=== PATIENT | female | born 1955 | race Caucasian/White ===

== ENCOUNTER 2019-08-08 13:36 | Outpatient (CLI) | payer BC ==
--- NOTE | 2019-08-08 20:06 | MRI ---
MRI OF THE RIGHT THUMB WITH AND WITHOUT CONTRAST: 08/08/19 HISTORY: Ganglion cyst. COMPARISON: Radiograph 07/31/19. FINDINGS: At the dorsal aspect of the thumb just distal to the interphalangeal joint is a multiloculated cystic structure superficial to the extensor pollicis longus tendon which measures 1 cm transverse with an AP dimension of 4 mm with a length of approximately 1 cm. There is extension from the interphalangea l joint laterally, best seen on coronal STIR image 8. No abnormal internal enhancement. The flexor tendon is intact. Extensive pollicis longus tendon is intact. Flexor tendons are intact. Muscle signal and bulk is normal. There is a mild degenerative narrowing of the interphalangeal joint with dorsal osteophyte of the proximal phalanx head and distal phalanx base. IMPRESSION: Nonenhancing multilobulated and septated ganglion pseudocyst just superficial to the terminal inserti on of the extensor pollicis longus tendon at the distal phalanx base as described. No abnormal enhanc ement to suggest an underlying solid mass. This originates from the lateral aspect of the joint likel y from an old collateral ligament injury. POS: HOME
== END 2019-08-08 13:37 | disposition home or self-care (01) ==
LOC: SCSMRI 13:36
PROVIDERS: ATTEND Orthopaedic Surgery Hand Surgery
DX: M67.441 Ganglion, right hand (principal)
CPT/HCPCS: 70551

== ENCOUNTER 2019-09-01 07:23 | Outpatient (CLI) | payer BC, OTHER ==
[2019-09-01 16:28] LABS: #Basophils 0.1 thou/uL (0.0-0.2); #Eosinphils 0.3 thou/uL (0.0-0.7); #Lymphocytes 2.8 thou/uL (1.20-3.40); #Monocytes 0.8 thou/uL (0.11-0.59); #Neutrophils 4.6 thou/uL (1.40-6.50); %Basophils 1.5 % (0.0-1.0); %Eosinophils 2.9 % (0.0-10.0); %Lymphocytes 32.6 % (21.0-51.0); %Monocytes 9.6 % (0.0-10.0); %Neutrophils 53.5 % (42.0-75.0); Hemoglobin 15.1 g/dL (12.0-16.0); Mean Corpuscular HGB CONC 33.9 g/dL (32.0-36.0); Mean Corpuscular Hemoglobin 31.3 pg (27.0-31.0); Mean Corpuscular Volume 92.4 fL (78.0-98.0); Mean Platelet Volume 10.8 fL (7.4-10.4); Platelet Count 215 thou/uL (130-400); RBC Distribution Width 11.7 % (11.5-14.5); Red Blood Cell (RBC) Count 4.81 mill/uL (4.20-5.40); White Blood Cell (WBC) Count 8.7 thou/uL (4.8-10.8)
[2019-09-01 16:58] LABS: Bacteria/HPF 2+ HPF (None Seen); Bilirubin Negative (Negative); Blood, Urine 1+ (Negative); Clarity Turbid (Clear); Glucose, Urine (Dipstick) Normal (Negative); Leukocyte 500 Leu/uL (Negative); Mucous/LPF 1+ LPF (<2+); Nitrite Negative (Negative); Protein, Urine (Dipstick) 20 mg/dL (Neg-Trace); Urobilinogen Normal mg/dL (Less than 2); WBC/HPF 21-50 HPF (0-3)
[2019-09-02 13:11] LABS: SARS-CoV-2 MS2 Positive; SARS-CoV-2 N Gene Negative; SARS-CoV-2 S Gene Negative; SARS-CoV-2 orf1ab Negative
== END 2019-09-01 07:24 | disposition home or self-care (01) ==
LOC: LABBT 07:23
PROVIDERS: ATTEND Orthopaedic Surgery Hand Surgery
DX: Z01.818 Encounter for other preprocedural examination (principal); Z11.59 Encounter for screening for other viral diseases; M67.441 Ganglion, right hand
CPT/HCPCS: 81001; 85025; 87635; U0003

== ENCOUNTER 2019-09-05 07:49 | Day surgery (SDC) | payer BC ==
[2019-09-05 08:32] LABS: Bacteria/HPF None Seen HPF (None Seen); Bilirubin Negative (Negative); Blood, Urine 1+ (Negative); Clarity Clear (Clear); Glucose, Urine (Dipstick) Normal (Negative); Leukocyte Negative Leu/uL (Negative); Nitrite Negative (Negative); Protein, Urine (Dipstick) Negative (Neg-Trace); RBC/HPF 0-3 HPF (0-3); Squamous Epithelial 0-3 HPF (0-3); Urobilinogen Normal mg/dL (Less than 2); WBC/HPF 0-3 HPF (0-3)
[2019-09-05] MEDS ORDERED: Midazolam HCl 2 mg/2 ml Vial ONE (10:36)
[2019-09-05] MEDS ORDERED: Fentanyl 100 MCG/2 ML VIAL ONE (10:36)
[2019-09-05] MEDS ORDERED: Bacitracin Zinc Ointment 30 gm TUBE ONE (10:41)
[2019-09-05] MEDS ORDERED: Bupivacaine PF 0.5% 30 ML VIAL ONE (10:41)
[2019-09-05] MEDS ORDERED: PROPOFOL 200 MG/20 ML VIAL ONE (10:51)
[2019-09-05] MEDS ORDERED: Lidocaine 1% PF 5 ML VIAL ONE (10:51)
[2019-09-05] MEDS ORDERED: Dexamethasone 20 MG/5 ML VIAL ONE (10:51)
[2019-09-05] MEDS ORDERED: Ketorolac Tromethamine 30 MG/ML VIAL ONE (10:51)
[2019-09-05] MEDS ORDERED: Ondansetron PF 4 MG/2 ML Vial ONE (10:51)
[2019-09-05] MEDS ORDERED: EPHEDRINE 25 MG/5 ML SYRINGE ONE (10:51)
--- NOTE | 2019-09-05 14:35 | OP ---
DATE OF PROCEDURE: 09/05/2019 PREOPERATIVE DIAGNOSIS: Right thumb ganglion, 2 x 1 cm from the thumb interphalangeal radial aspect. FINDINGS: 1. Radial thumb osteophyte, large, with some chondral loss approximately 15% of the radial condyle dorsal radial thumb interphalangeal joint with ganglion emanated. 2. Removal of the ganglion, right thumb from the extensor and the arthrotomy of the ganglion cyst cavty, stalk going through the extensor tendon into the joint radial aspect distal interphalangeal joint. SPECIMEN: ganglion and osteophyte was also sent as specimen. TOURNIQUET TIME: 20 minutes. DESCRIPTION OF PROCEDURE: After successful general endotracheal anesthesia, the limb was prepped and draped. We irrigated the patient with standard 12 mL of 0.5% Marcaine block at metacarpophalangeal joint level. Three minutes later, we exsanguinated the limb, inflated tourniquet to 250 mmHg pressure. We then created a J incision over the joint, dissected down to the mass, the mass was deflated, saw it emanated from the inferior aspect of the distal interphalangeal joint. We slowly lifted it off the medial nail bed, lift up the insertion on the radial aspect of the extensor pollicis longus insertion and followed the stalk, went into the joint. Joint fluid jelly type was exposed and we removed the stalk. We then dissected off the nail bed, germinal aspect, and took a specimen, sent it to the lab. We deflated the tourniquet. We performed appropriate hemostasis, and then closed the incision for hemostasis with interrupted 5-0 nylon in a simple pattern and the patient left the operating room without evidence of anesthetic or operative complication. Job ID: [id number]
--- NOTE | 2019-09-06 10:49 | EKG ---
Test Reason : PREOP Blood Pressure : / mmHG Vent. Rate : 065 BPM Atrial Rate : 065 BPM P-R Int : 180 ms QRS Dur : 090 ms QT Int : 406 ms P-R-T Axes : 066 023 038 degrees QTc Int : 422 ms Normal sinus rhythm Normal ECG No previous ECGs available Confirmed by DR. Elier MORA ([id number]) on 09/06/2019 10:48:29 AM Referred By: CATERINA Confirmed By:DR. Elier MORA
== END 2019-09-05 14:12 | disposition home or self-care (01) ==
LOC: SDC 07:49
PROVIDERS: ATTEND Orthopaedic Surgery Hand Surgery
PROC: 0RBW0ZZ Excision of Right Finger Phalangeal Joint, Open Approach (ICD-10-PCS; principal; 2019-09-05)
DX: M67.441 Ganglion, right hand (principal); M25.741 Osteophyte, right hand; M19.019 Primary osteoarthritis, unspecified shoulder; M19.049 Primary osteoarthritis, unspecified hand; I10 Essential (primary) hypertension; Z79.899 Other long term (current) drug therapy
CPT/HCPCS: 81001; 88305; 88311; 93005; 93010; J0690; J1100; J1885; J2001; J2250; J2405; J2704; J3010; J3490; S0020

== ENCOUNTER 2023-09-25 14:52 | Outpatient (CLI) | payer BC | END 2023-09-25 14:53 | disposition home or self-care (01) | LOC: BICCT 14:52 | PROVIDERS: ATTEND Nurse Practitioner Family | DX: N20.0 Calculus of kidney (principal); R30.0 Dysuria; R31.9 Hematuria, unspecified; N13.2 Hydronephrosis with renal and ureteral calculous obstruction | CPT/HCPCS: 74176 ==

== ENCOUNTER 2023-09-25 16:43 | Observation (INO) | payer BC ==
[2023-09-25 17:58] LABS: #Basophils 0.04 10x3/uL (0.0-0.2); %Basophils 0.5 % (0.0-1.0); %Eosinophils 2.5 % (0.0-10.0); %Lymphocytes 22.4 % (21.0-51.0); %Monocytes 11.8 % (0.0-10.0); %Neutrophils 62.5 % (42.0-75.0); Hematocrit 38.7 % (36.0-47.0); Hemoglobin 13.4 g/dL (12.0-16.0); Mean Corpuscular HGB CONC 34.6 g/dL (32.0-36.0); Mean Corpuscular Volume 89.6 fL (78.0-98.0); Mean Platelet Volume 12.3 fL (7.4-10.4); Platelet Count 222 10x3/uL (130-400); Red Blood Cell (RBC) Count 4.32 mill/uL (4.20-5.40)
[2023-09-25 18:08] LABS: ALT (SGPT) 27 U/L (8-55); AST (SGOT) 21 U/L (5-34); Albumin 3.8 g/dL (3.4-4.8); Alkaline Phosphatase 87 U/L (40-110); Anion Gap 13 mmol/L (10-20); BUN (Urea Nitrogen) 27 mg/dL (9.8-20.1); Bilirubin, Total 0.6 mg/dL (0.2-1.2); Calc. Creatinine Clearance 0 mL/min (70-130); Calcium 9.9 mg/dL (7.8-10.44); Carbon Dioxide 23 mmol/L (23-31); Chloride 105 mmol/L (98-107); Estimated GFR 26; Globulin 3.7 g/dL (2.4-3.5); Glucose 94 mg/dL (80-115); Potassium 3.5 mmol/L (3.5-5.1); Protein, Total 7.5 g/dL (5.8-8.1); Sodium 137 mmol/L (136-145)
[2023-09-25 20:27] LABS: Bilirubin Negative (Negative); Blood, Urine Negative (Negative); CAUTI Indications for Culture Pelvic or flank pain; Clarity Clear (Clear); Glucose, Urine (Dipstick) Normal (Negative); Ketone, Urine Negative (Negative); Leukocyte 500 Leu/uL (Negative); Nitrite Negative (Negative); Protein, Urine (Dipstick) Negative (Neg-Trace); RBC/HPF 0-3 HPF (0-3); Specific Gravity, Urine 1.006 (1.002-1.036); Squamous Epithelial 0-3 HPF (0-3); Urobilinogen Normal mg/dL (Less than 2); WBC/HPF 21-50 HPF (0-3); pH, Urine 6.5 (5.0-9.0)
[2023-09-25 20:28] LABS: Bacteria/HPF 1+ HPF (None Seen)
[2023-09-25 20:29] LABS: Urine Culture Reflex Yes Yes
[2023-09-25] MEDS ORDERED: Sodium Chloride 0.9% 100 ML ONE (21:30)
[2023-09-25] MEDS ORDERED: cefTRIAXone (ROCEPHIN) 2 GM VIAL ONE (21:30)
[2023-09-25] MEDS ORDERED: Iopamidol 15 ML ONE (21:32)
[2023-09-25] MEDS ORDERED: Ondansetron ODT 4 MG TAB SL PRN (22:00)
[2023-09-25] MEDS ORDERED: Ondansetron PF 4 MG/2 ML Vial IVP PRN (22:00)
[2023-09-25] MEDS ORDERED: PROPOFOL 20 ML ONE (22:08)
[2023-09-25] MEDS ORDERED: Lidocaine 2% PF 5 ML VIAL ONE (22:08)
[2023-09-25] MEDS ORDERED: Ondansetron PF 4 MG/2 ML Vial ONE (22:08)
[2023-09-25] MEDS ORDERED: fentaNYL PF 100 MCG/2 ML SYRINGE ONE (22:08)
[2023-09-25] MEDS ORDERED: Dexamethasone 4 mg/ml Vial ONE (22:08)
[2023-09-25] MEDS ORDERED: HYDROmorphone 2 MG/ML VIAL SLOW IVP PRN (22:17)
[2023-09-25] MEDS ORDERED: Ondansetron HCl/PF 4 MG/2 ML Vial IVP PRN (22:17)
[2023-09-25] MEDS ORDERED: Promethazine HCl 25 MG/ML VIAL IM PRN (22:17)
[2023-09-25] MEDS ORDERED: Acetaminophen 650 MG Suppository PR PRN (22:30)
[2023-09-26 00:08] VITALS: BMI 29.7
[2023-09-26] MEDS: Sodium Chloride 0.9% 1,000 ML IV SCH (00:26)
[2023-09-26] MEDS: Acetaminophen 325 MG TAB PO PRN (04:07)
[2023-09-26 05:30] LABS: #Basophils Less than 0.03 10x3/uL (0.0-0.2); #Eosinphils Less than 0.03 10x3/uL (0.0-0.7); %Basophils 0.2 % (0.0-1.0); %Eosinophils 0.4 % (0.0-10.0); %Lymphocytes 14.6 % (21.0-51.0); %Monocytes 2.4 % (0.0-10.0); %Neutrophils 82.2 % (42.0-75.0); Hematocrit 40.3 % (36.0-47.0); Mean Corpuscular HGB CONC 34.7 g/dL (32.0-36.0); Mean Corpuscular Volume 89.4 fL (78.0-98.0); Platelet Count 217 10x3/uL (130-400); Red Blood Cell (RBC) Count 4.51 mill/uL (4.20-5.40)
[2023-09-26 06:00] LABS: Anion Gap 14 mmol/L (10-20); BUN (Urea Nitrogen) 22 mg/dL (9.8-20.1); Calc. Creatinine Clearance 43 mL/min (70-130); Calcium 9.4 mg/dL (7.8-10.44); Carbon Dioxide 23 mmol/L (23-31); Chloride 107 mmol/L (98-107); Estimated GFR 35; Glucose 144 mg/dL (80-115); Potassium 3.8 mmol/L (3.5-5.1); Sodium 140 mmol/L (136-145)
[2023-09-26 08:03] VITALS: BP 160/82; TEMP 97.7
[2023-09-26] MEDS ORDERED: cefTRIAXone\\ROCEPHIN 1 GM in Sodium Chloride 0.9% 100 ML IVPB SCH (21:00)
== END 2023-09-26 11:27 | disposition home or self-care (01) ==
LOC: ERS 16:43 → T4-A 21:41
PROVIDERS: ADMIT Student in an Organized Health Care Education/Training Program; ATTEND Internal Medicine
PROC: 0T788DZ Dilation of Bilateral Ureters with Intraluminal Device, Via Natural or Artificial Opening Endoscopic (ICD-10-PCS; principal; 2023-09-26)
DX: N13.2 Hydronephrosis with renal and ureteral calculous obstruction (principal); N17.9 Acute kidney failure, unspecified; I10 Essential (primary) hypertension; Z90.710 Acquired absence of both cervix and uterus; Z87.59 Personal history of other complications of pregnancy, childbirth and the puerperium; Z79.899 Other long term (current) drug therapy; Z98.890 Other specified postprocedural states; N20.0 Calculus of kidney; R30.0 Dysuria; R31.9 Hematuria, unspecified
CPT/HCPCS: 36415; 74176; 74420; 80048; 80053; 81001; 83605; 85025; 87086; 96374; C1769; C2617; J0696; J1100; J2001; J2405; J2704; J3490; J7050; Q9967

== ENCOUNTER 2025-03-16 14:39 | Emergency (ER) | payer BC, MEDICARE ==
[2025-03-16 15:13] LABS: #Basophils 0.04 10x3/uL (0.0-0.2); #Eosinophils 0.67 10x3/uL (0.0-0.7); #Monocytes 0.82 10x3/uL (0.11-0.59); #Neutrophils 3.47 10x3/uL (1.40-6.50); %Basophils 0.6 % (0.0-1.0); %Eosinophils 9.6 % (0.0-10.0); %Lymphocytes 27.9 % (21.0-51.0); %Monocytes 11.8 % (0.0-10.0); %Neutrophils 50.0 % (42.0-75.0); Hematocrit 45.4 % (36.0-47.0); Hemoglobin 15.2 g/dL (12.0-16.0); Mean Corpuscular Hemoglobin 29.2 pg (27.0-31.0); Mean Corpuscular Volume 87.3 fL (78.0-98.0); Platelet Count 228 10x3/uL (130-400); Red Blood Cell (RBC) Count 5.20 mill/uL (4.20-5.40); White Blood Cell (WBC) Count 6.95 10x3/uL (4.8-10.8)
[2025-03-16 15:28] LABS: ALT (SGPT) 33 U/L (Less than 34); AST (SGOT) 26 U/L (11-34); Albumin 4.2 g/dL (3.1-4.5); Alkaline Phosphatase 111 U/L (40-110); Anion Gap 14 mmol/L (10-20); BUN (Urea Nitrogen) 14 mg/dL (9.8-20.1); Bilirubin, Total 0.4 mg/dL (0.3-1.2); Calc. Creatinine Clearance 0 mL/min (70-130); Calcium 9.7 mg/dL (7.8-10.44); Carbon Dioxide 26 mmol/L (23-31); Chloride 104 mmol/L (98-107); Globulin 3.7 g/dL (2.4-3.5); Glucose 94 mg/dL (80-115); Potassium 3.0 mmol/L (3.5-5.1); Sodium 141 mmol/L (136-145)
== END 2025-03-16 17:49 | disposition home or self-care (01) ==
LOC: ERS 14:39
DX: R07.89 Other chest pain (principal); I10 Essential (primary) hypertension; Z79.899 Other long term (current) drug therapy
CPT/HCPCS: 71045; 80053; 84484; 85025; 87428; 93005; 94760